=== PATIENT | male | born 1945 | race Caucasian/White ===

== ENCOUNTER 2017-02-02 15:24 | Emergency (ER) | payer MEDICARE, OTHER ==
[~2017-02-02] VITALS: Ht 185.4 cm; Wt 86.2 kg
[~2017-02-02 15:24] MED LIST: ASPIRIN ADULT L81 M1 PO; ATORVASTATIN CA40 M1 PO; CALCIUM ACETAT667 MG PO; CLEOCIN150 MG PO; COLACE100 MG PO; COREG12.5 M1 PO; CRESTOR20 MG PO; FLEXERIL10 MG PO; IRON325 M2 PO; MECLIZINE HCL25 M2 PO; METOPROLOL TART50 M1 PO; MOTRIN800 MG PO; PLAVIX75 M1 PO; PREDNISONE10 MG PO; TERAZOSIN HCL5 M1 PO; TRAMADOL HCL50 MG PO
[2017-02-02 16:08] LABS: BASO # 0.1 10*3/uL (0.0-0.1); BASO % 1.2 % (0.0-1.0); EOS # 0.3 10*3/uL (0.0-0.4); EOS % 3.7 % (1.0-4.0); HEMATOCRIT 31.6 % (42.0-52.0); HEMOGLOBIN 10.8 g/dl (14.0-18.0); LYMPH # 1.8 10*3/uL (1.3-4.4); LYMPH % 22.6 % (27.0-41.0); MEAN CELL VOLUME 92.7 fl (80.0-94.0); MEAN CORPUSCULAR HGB 31.7 pg (27.0-31.0); MEAN CORPUSCULAR HGB CONC 34.2 g/dl (33.0-37.0); MEAN PLATELET VOLUME 10.4 fl (9.6-12.3); MONO # 0.5 10*3/uL (0.1-1.0); NEUT # 5.3 10*3/uL (2.3-7.9); NEUT % 66.1 % (47.0-73.0); PLATELET COUNT AUTOMATED 161 10*3/uL (130-400); RED BLOOD COUNT 3.41 10*6/uL (4.50-5.90); RED CELL DISTRI WIDTH 14.2 % (0-14.5)
[2017-02-02 16:23] LABS: ALBUMIN 3.1 gm/dl (3.1-4.5); CREATININE 4.74 mg/dL (0.70-1.30); POTASSIUM 3.9 mmol/L (3.5-5.1); TOTAL PROTEIN 6.6 gm/dL (6.4-8.2)
[2017-02-02 16:50] LABS: BILIRUBIN NEGATIVE (NEGATIVE); BLOOD NEGATIVE (NEGATIVE); CLARITY CLEAR (CLEAR); COLOR YELLOW (YELLOW); GLUCOSE NEGATIVE (NEGATIVE); KETONE TRACE (NEGATIVE); LEUKO ESTERASE NEGATIVE (NEGATIVE); NITRITE NEGATIVE (NEGATIVE)
[2017-02-02 16:59] LABS: HYALINE CAST 0-2; RBC 0-2 rbc/hpf (0-2); WBC 0-2 wbc/hpf (0-5)
[2017-02-02] MEDS ORDERED: PERCOCET 5-3251 EACH PO (17:12)
== END 2017-02-02 17:18 | disposition home or self-care (01) ==
LOC: ED 15:24
PROVIDERS: Nurse Practitioner
DX: S30.0XXA Contusion of lower back and pelvis, initial encounter (principal); F17.200 Nicotine dependence, unspecified, uncomplicated; Z95.1 Presence of aortocoronary bypass graft; Z98.890 Other specified postprocedural states; Z79.899 Other long term (current) drug therapy; Z88.0 Allergy status to penicillin; Z79.82 Long term (current) use of aspirin; W19.XXXA Unspecified fall, initial encounter; Y93.89 Activity, other specified; Y92.89 Other specified places as the place of occurrence of the external cause; Y99.9 Unspecified external cause status

== ENCOUNTER 2018-05-11 19:05 | Emergency (ER) | payer MEDICARE ==
[~2018-05-11] VITALS: Ht 193 cm; Wt 87.1 kg
[~2018-05-11 19:05] MED LIST changes: +PERCOCET 5-3251 EACH PO
== END 2018-05-11 20:40 | disposition short-term general hospital (02) ==
LOC: ED 19:05
DX: I62.9 Nontraumatic intracranial hemorrhage, unspecified (principal); I12.0 Hypertensive chronic kidney disease with stage 5 chronic kidney disease or end stage renal disease; N18.6 End stage renal disease; I25.10 Atherosclerotic heart disease of native coronary artery without angina pectoris; Z88.0 Allergy status to penicillin; Z79.899 Other long term (current) drug therapy; Z79.82 Long term (current) use of aspirin; Z86.73 Personal history of transient ischemic attack (TIA), and cerebral infarction without residual deficits

== ENCOUNTER 2018-09-16 15:38 | Emergency (ER) | payer OTHER ==
[~2018-09-16] VITALS: Ht 187.9 cm; Wt 88.5 kg
--- NOTE | ~2018-09-16 | EKG ---
[place], [place] ELECTROCARDIOGRAM REPORT NAME: FOREIGN GONZALES UNIT #: [id number] ROOM: DOCTOR: EPIPHANY DRAFT REPORT BIRTHDATE: [birth year] [facility] Test Date: 2018-09-16 Test Time: 16:35:32 Pat Name: FOREIGN GONZALES Department: ed Room: Gender: Glove Parts Inspector: : 1945 Requested By: CATY PALOMARES Order Number: [id number] Reading MD: Shan Weldon MD Measurements Intervals [place] Rate: 63 P: 69 SC: 179 QRS: 47 QRSD: 78 T: 84 QT: 483 QTc: 495 Interpretive Statements Sinus rhythm Borderline prolonged QT interval Electronically Signed On 09-19-2018 8:40:00 PDT by Shan Weldon MD CM:EKGRPT:ELECTROCARDIOGRAM REPORT [id number] CATY MONTAÑO DRAFT REPORT CATY YORK
[2018-09-16 16:39] LABS: BASO # 0.1 10*3/uL (0.0-0.1); BASO % 1.6 % (0.0-1.0); EOS # 0.2 10*3/uL (0.0-0.4); EOS % 2.6 % (1.0-4.0); HEMATOCRIT 37.5 % (42.0-52.0); HEMOGLOBIN 11.9 g/dl (14.0-18.0); LYMPH # 1.2 10*3/uL (1.3-4.4); MEAN CELL VOLUME 96.6 fl (80.0-94.0); MEAN CORPUSCULAR HGB 30.7 pg (27.0-31.0); MEAN CORPUSCULAR HGB CONC 31.7 g/dl (33.0-37.0); MEAN PLATELET VOLUME 9.7 fl (9.6-12.3); MONO # 0.7 10*3/uL (0.1-1.0); NEUT # 5.1 10*3/uL (2.3-7.9); NEUT % 69.4 % (47.0-73.0); PLATELET COUNT AUTOMATED 223 10*3/uL (130-400); RED BLOOD COUNT 3.88 10*6/uL (4.50-5.90); WHITE BLOOD COUNT 7.4 10*3/uL (4.8-10.8)
[2018-09-16 16:59] LABS: ALKALINE PHOSPHATASE 94 U/L (45-117); BUN 21 mg/dl (7-24); CHLORIDE 98 mmol/L (98-107); CREATININE 5.66 mg/dL (0.70-1.30); LIPASE 164 U/L (73-393); POTASSIUM 3.9 mmol/L (3.5-5.1); SGOT/AST 14 IU/L (3-35); SGPT/ALT 14 U/L (12-78); SODIUM 134 mmol/L (136-145); TOTAL PROTEIN 7.2 gm/dL (6.4-8.2)
[2018-09-16 17:03] LABS: ACT PARTIAL THROMBO TIME 27.1 SECONDS (20.0-32.1)
[2018-09-16 17:04] LABS: TROPONIN I < 0.015 ng/ml (<0.045)
[2018-09-16] MEDS ORDERED: COREG6.25 MG PO (18:22)
[2018-09-16] MEDS ORDERED: LISINOPRIL10 M1 PO (18:22)
== END 2018-09-16 18:24 | disposition home or self-care (01) ==
LOC: ED 15:38
PROVIDERS: Physician Assistant
DX: I12.0 Hypertensive chronic kidney disease with stage 5 chronic kidney disease or end stage renal disease (principal); N18.6 End stage renal disease; I25.2 Old myocardial infarction; Z88.0 Allergy status to penicillin; Z79.82 Long term (current) use of aspirin; Z79.899 Other long term (current) drug therapy; Z95.1 Presence of aortocoronary bypass graft; Z86.73 Personal history of transient ischemic attack (TIA), and cerebral infarction without residual deficits; Z99.2 Dependence on renal dialysis

== ENCOUNTER 2018-12-02 06:36 | Inpatient (IN) | payer OTHER ==
[~2018-12-02] VITALS: Ht 188 cm; Wt 100.9 kg
[~2018-12-02 06:36] MED LIST changes: -ATORVASTATIN CA40 M1 PO; +COREG6.25 MG PO; +LIPITOR80 MG PO; +LISINOPRIL10 M1 PO
[2018-12-02 06:52] VITALS: BP 148/57
[2018-12-02 07:04] LABS: BASO # 0.2 10*3/uL (0.0-0.1); EOS # 0.5 10*3/uL (0.0-0.4); EOS % 2.7 % (1.0-4.0); HEMATOCRIT 34.1 % (42.0-52.0); HEMOGLOBIN 10.8 g/dl (14.0-18.0); LYMPH # 1.4 10*3/uL (1.3-4.4); LYMPH % 7.8 % (27.0-41.0); MEAN CELL VOLUME 95.3 fl (80.0-94.0); MEAN CORPUSCULAR HGB 30.2 pg (27.0-31.0); MEAN CORPUSCULAR HGB CONC 31.7 g/dl (33.0-37.0); MONO # 0.6 10*3/uL (0.1-1.0); MONO % 3.7 % (3.0-9.0); NEUT # 14.6 10*3/uL (2.3-7.9); NEUT % 83.2 % (47.0-73.0); PLATELET COUNT AUTOMATED 166 10*3/uL (130-400); RED BLOOD COUNT 3.58 10*6/uL (4.50-5.90); RED CELL DISTRI WIDTH 15.7 % (0-14.5); WHITE BLOOD COUNT 17.5 10*3/uL (4.8-10.8)
[2018-12-02 07:22] LABS: ALBUMIN 3.1 gm/dl (3.1-4.5); ALKALINE PHOSPHATASE 103 U/L (45-117); BUN 40 mg/dl (7-24); CHLORIDE 99 mmol/L (98-107); CREATININE 7.92 mg/dL (0.70-1.30); POTASSIUM 4.2 mmol/L (3.5-5.1); SGOT/AST 20 IU/L (3-35); SGPT/ALT 25 U/L (12-78); SODIUM 136 mmol/L (136-145); TOTAL PROTEIN 7.1 gm/dL (6.4-8.2)
[2018-12-02 07:25] LABS: TROPONIN I < 0.015 ng/ml (<0.045)
[2018-12-02 07:47] LABS: ACT PARTIAL THROMBO TIME 81.9 SECONDS (20.0-32.1)
--- NOTE | 2018-12-02 07:47 | NUR ---
APTT = 81.9. CRITICAL VALUE.
--- NOTE | 2018-12-02 09:21 | NUR ---
PT RECEIVED BREAKFAST TRAY. EATING BEFORE GOING TO 4E.
[2018-12-02 09:31] LABS: BILIRUBIN NEGATIVE (NEGATIVE); BLOOD TRACE-INTACT (NEGATIVE); CLARITY CLEAR (CLEAR); COLOR YELLOW (YELLOW); GLUCOSE TRACE (NEGATIVE); KETONE NEGATIVE (NEGATIVE); LEUKO ESTERASE NEGATIVE (NEGATIVE); NITRITE NEGATIVE (NEGATIVE); PH 7.5 (5.0-9.0); SPECIFIC GRAVITY 1.015 (1.005-1.030); UROBILINOGEN 0.2 E.U./dl (0.2-1.0)
[2018-12-02 09:40] LABS: BACTERIA TRACE
[2018-12-02 10:00] VITALS: BP 132/52
--- NOTE | 2018-12-02 10:00 | NUR ---
Time: 999 A 73 year old MALE admitted to 4E under services of ARIC MEDRANO DO. Pt. arrived via wheel chair from ER. Chief complaint: SENT FROM DIALYSIS DUE TO RN THOUGHT PATIENT WAS HAVING A STROKE. BILL LEE
--- NOTE | 2018-12-02 10:16 | NUR ---
RENAL/ANKLE FOOT AND ID HAVE BEEN NOTIFIED OF CONSULTS
[2018-12-02] MEDS ORDERED: B-12500 MC1 PO (10:56)
[2018-12-02] MEDS ORDERED: NATURE'S BLEND F1 MG PO (10:59)
[2018-12-02] MEDS ORDERED: Bactroban Oint22 GM T (11:03)
[2018-12-02] MEDS ORDERED: PYRIDOXINE HCL50 MG PO (11:05)
[2018-12-02 12:00] VITALS: BP 121/50
--- NOTE | 2018-12-02 14:57 | NUR ---
Patient not available for Occupational Therapy as he is in dialysis. Kendal Reyes OTR/L
--- NOTE | 2018-12-02 14:57 | NUR ---
PHYSICAL THERAPY Physical therapy evaluation attempted however Pt unavailable; Pt in dialysis. Will attempt later. Thank you Vicki Greenberg, PT, DPT
[2018-12-02 20:00] VITALS: BP 129/57
[2018-12-03] VITALS: BP 120/50
--- NOTE | 2018-12-03 04:00 | NUR ---
SLEEPING. NO ACUTE DISTRESS.
--- NOTE | 2018-12-03 05:05 | NUR ---
24 HR chart check completed.
[2018-12-03 07:58] LABS: BASO # 0.2 10*3/uL (0.0-0.1); BASO % 1.4 % (0.0-1.0); EOS # 0.4 10*3/uL (0.0-0.4); EOS % 3.5 % (1.0-4.0); HEMATOCRIT 26.9 % (42.0-52.0); HEMOGLOBIN 8.5 g/dl (14.0-18.0); LYMPH # 1.6 10*3/uL (1.3-4.4); LYMPH % 15.2 % (27.0-41.0); MEAN CELL VOLUME 95.4 fl (80.0-94.0); MEAN CORPUSCULAR HGB 30.1 pg (27.0-31.0); MEAN CORPUSCULAR HGB CONC 31.6 g/dl (33.0-37.0); MEAN PLATELET VOLUME 10.8 fl (9.6-12.3); MONO # 0.9 10*3/uL (0.1-1.0); MONO % 8.2 % (3.0-9.0); NEUT # 7.7 10*3/uL (2.3-7.9); NEUT % 71.1 % (47.0-73.0); PLATELET COUNT AUTOMATED 150 10*3/uL (130-400); RED BLOOD COUNT 2.82 10*6/uL (4.50-5.90); RED CELL DISTRI WIDTH 15.8 % (0-14.5); WHITE BLOOD COUNT 10.8 10*3/uL (4.8-10.8)
[2018-12-03 08:00] VITALS: BP 122/46
--- NOTE | 2018-12-03 08:00 | NUR ---
PT SLEEPING. ATTEMPTED TO WAKE HIM UP TO TAKE PO PHOSLO. PT REFUSED. BED LOW. CALL ORTEGA IN REACH
[2018-12-03 08:08] LABS: ACT PARTIAL THROMBO TIME 30.5 SECONDS (20.0-32.1)
[2018-12-03 08:28] LABS: ALBUMIN 2.5 gm/dl (3.1-4.5); CREATININE 6.15 mg/dL (0.70-1.30); PHOSPHOROUS 4.5 mg/dL (2.5-4.9); POTASSIUM 4.3 mmol/L (3.5-5.1)
[2018-12-03 08:32] LABS: THYROID STIM HORMONE (HS) 0.49 uIU/ml (0.358-4.75)
[2018-12-03 09:07] LABS: VITAMIN D, 25-HYDROXY 11.4 ng/mL (30-100)
--- NOTE | 2018-12-03 09:30 | NUR ---
PT AWAKE. ASSESSMENT COMPLETE. ROUTINE MEDICATIONS WELL TOLERATED. NO PT QUESTIONS/CONCERNS AT THIS TIME
[2018-12-03 12:00] VITALS: BP 134/49
--- NOTE | 2018-12-03 15:00 | NUR ---
ASSUMED CARE FOR THIS PT AT THIS TIME. NO C/O VOICED. CALL LIGHT IN REACH.
[2018-12-03 16:00] VITALS: BP 152/54
[2018-12-03 20:00] VITALS: BP 140/42
--- NOTE | 2018-12-03 22:45 | NUR ---
24 HR chart check completed.
[2018-12-04] VITALS: BP 142/52
--- NOTE | 2018-12-04 01:21 | NUR ---
24 HR chart check completed.
--- NOTE | 2018-12-04 03:17 | NUR ---
sleeping no distress noted.
--- NOTE | 2018-12-04 06:00 | NUR ---
PT. ALERT SITTING UP IN BED WATCHING TV. PT APPEARANCE HAS IMPROVED SINCE YESTERDAY AND IS HOPING TO GO HOME TODAY.
[2018-12-04 06:34] LABS: BASO # 0.1 10*3/uL (0.0-0.1); BASO % 1.3 % (0.0-1.0); EOS # 0.3 10*3/uL (0.0-0.4); HEMATOCRIT 27.7 % (42.0-52.0); HEMOGLOBIN 8.5 g/dl (14.0-18.0); LYMPH # 1.4 10*3/uL (1.3-4.4); LYMPH % 13.2 % (27.0-41.0); MEAN CELL VOLUME 96.9 fl (80.0-94.0); MEAN CORPUSCULAR HGB 29.7 pg (27.0-31.0); MEAN CORPUSCULAR HGB CONC 30.7 g/dl (33.0-37.0); MEAN PLATELET VOLUME 11.2 fl (9.6-12.3); MONO # 0.8 10*3/uL (0.1-1.0); MONO % 7.3 % (3.0-9.0); NEUT # 7.7 10*3/uL (2.3-7.9); NEUT % 74.7 % (47.0-73.0); PLATELET COUNT AUTOMATED 170 10*3/uL (130-400); RED BLOOD COUNT 2.86 10*6/uL (4.50-5.90); RED CELL DISTRI WIDTH 15.8 % (0-14.5); WHITE BLOOD COUNT 10.2 10*3/uL (4.8-10.8)
[2018-12-04 06:49] LABS: ALBUMIN 2.6 gm/dl (3.1-4.5); CREATININE 8.38 mg/dL (0.70-1.30); PHOSPHOROUS 4.8 mg/dL (2.5-4.9)
[2018-12-04 06:59] LABS: POTASSIUM 5.3 mmol/L (3.5-5.1)
[2018-12-04 08:00] VITALS: BP 139/48
[2018-12-04 12:00] VITALS: BP 136/65
--- NOTE | 2018-12-04 12:57 | NUR ---
DR ROMERO IN TO SEE PT. INFORMED PT HE WOULD BE DISCHARGED TODAY.
--- NOTE | 2018-12-04 13:12 | NUR ---
PHYSICAL THERAPY Progress note: Pt seen for evaluation while on 4th floor, moderate complexity determined. Refer to evaluation for details with recommendation for HHPT upon discharge. Thank you for this referral Sofía Rizo, PT
--- NOTE | 2018-12-04 13:57 | NUR ---
Discharge instructions reviewed with patient/family. Patient receptive and verbalizes understanding. Follow-up care arranged. Written instructions given to patient/family. INDIO GASTELUM
== END 2018-12-04 13:57 | disposition home or self-care (01) | DRG 602 ==
LOC: ED 06:36 → 4E 08:27 → EDHOLD 08:27 → 4E 08:55
PROVIDERS: Emergency Medicine Emergency Medical Services; Internal Medicine; Student in an Organized Health Care Education/Training Program; ADMIT Emergency Medicine
DX: L03.90 Cellulitis, unspecified (principal); N18.6 End stage renal disease; I12.0 Hypertensive chronic kidney disease with stage 5 chronic kidney disease or end stage renal disease; E44.0 Moderate protein-calorie malnutrition; B35.1 Tinea unguium; I25.10 Atherosclerotic heart disease of native coronary artery without angina pectoris; E78.5 Hyperlipidemia, unspecified; I73.9 Peripheral vascular disease, unspecified; F17.210 Nicotine dependence, cigarettes, uncomplicated; H91.13 Presbycusis, bilateral; M54.5 Low back pain; G89.29 Other chronic pain; D72.825 Bandemia; D53.9 Nutritional anemia, unspecified; R80.9 Proteinuria, unspecified; Z86.73 Personal history of transient ischemic attack (TIA), and cerebral infarction without residual deficits; I25.2 Old myocardial infarction; Z88.0 Allergy status to penicillin; Z79.82 Long term (current) use of aspirin; Z79.899 Other long term (current) drug therapy; Z95.1 Presence of aortocoronary bypass graft; Z99.2 Dependence on renal dialysis; Z82.49 Family history of ischemic heart disease and other diseases of the circulatory system; Z80.8 Family history of malignant neoplasm of other organs or systems; Z71.6 Tobacco abuse counseling

== ENCOUNTER 2018-12-21 07:06 | Emergency (ER) | payer OTHER ==
[~2018-12-21] VITALS: Ht 187.9 cm; Wt 90.7 kg
--- NOTE | ~2018-12-21 | EKG ---
[place], [place] ELECTROCARDIOGRAM REPORT NAME: FOREIGN GONZALES UNIT #: [id number] ROOM: DOCTOR: EPIPHANY DRAFT REPORT BIRTHDATE: [birth year] [facility] Test Date: 2018-12-21 Test Time: 07:32:46 Pat Name: FOREIGN GONZALES Department: Room: 9 Gender: M Community Engagement Coordinator: : 1945 Requested By: MICHAEL LÓPEZ Order Number: [id number] Reading MD: Tammy Chang Measurements Intervals [place] Rate: 75 P: AR: QRS: 53 QRSD: 78 T: QT: 222 QTc: 376 Interpretive Statements Atrial rhythm Nonspecific T abnormalities, diffuse leads Baseline wander in lead(s) I,III,aVL,V4 Compared to ECG 12/02/2018 06:52:49 Ventricular premature complex(es) now present T-wave abnormality now present First degree AV block no longer present Electronically Signed On 12-23-2018 7:36:28 PST by Tammy Chang CM:EKGRPT:ELECTROCARDIOGRAM REPORT [id number] MICHAEL MONTAÑO DRAFT REPORT MICHAEL LÓPEZ MD
[~2018-12-21 07:06] MED LIST changes: +B-12500 MC1 PO; +Bactroban Oint22 GM T; +NATURE'S BLEND F1 MG PO; +PYRIDOXINE HCL50 MG PO
[2018-12-21 07:35] LABS: BASO # 0.1 10*3/uL (0.0-0.1); BASO % 1.1 % (0.0-1.0); EOS # 0.4 10*3/uL (0.0-0.4); EOS % 4.8 % (1.0-4.0); HEMATOCRIT 26.2 % (42.0-52.0); LYMPH # 1.5 10*3/uL (1.3-4.4); LYMPH % 17.5 % (27.0-41.0); MEAN CELL VOLUME 98.1 fl (80.0-94.0); MEAN CORPUSCULAR HGB CONC 30.5 g/dl (33.0-37.0); MEAN PLATELET VOLUME 9.7 fl (9.6-12.3); MONO # 0.6 10*3/uL (0.1-1.0); MONO % 6.4 % (3.0-9.0); NEUT # 6.2 10*3/uL (2.3-7.9); NEUT % 69.9 % (47.0-73.0); PLATELET COUNT AUTOMATED 179 10*3/uL (130-400); RED BLOOD COUNT 2.67 10*6/uL (4.50-5.90); RED CELL DISTRI WIDTH 16.7 % (0-14.5); WHITE BLOOD COUNT 8.8 10*3/uL (4.8-10.8)
[2018-12-21 07:45] LABS: ACT PARTIAL THROMBO TIME 38.7 SECONDS (20.0-32.1)
[2018-12-21 07:53] LABS: ALBUMIN 2.8 gm/dl (3.1-4.5); ALKALINE PHOSPHATASE 93 U/L (45-117); BUN 26 mg/dl (7-24); CHLORIDE 100 mmol/L (98-107); POTASSIUM 4.8 mmol/L (3.5-5.1); SGOT/AST 13 IU/L (3-35); SGPT/ALT 18 U/L (12-78); SODIUM 138 mmol/L (136-145); TOTAL PROTEIN 6.8 gm/dL (6.4-8.2)
[2018-12-21 08:00] LABS: TROPONIN I < 0.015 ng/ml (<0.045)
== END 2018-12-21 14:37 | disposition short-term general hospital (02) ==
LOC: ED 07:06
PROVIDERS: Emergency Medicine
DX: R53.1 Weakness (principal); R29.810 Facial weakness; R20.0 Anesthesia of skin; I25.2 Old myocardial infarction; Z95.1 Presence of aortocoronary bypass graft; I25.10 Atherosclerotic heart disease of native coronary artery without angina pectoris; E78.5 Hyperlipidemia, unspecified; I12.0 Hypertensive chronic kidney disease with stage 5 chronic kidney disease or end stage renal disease; N18.6 End stage renal disease; Z99.2 Dependence on renal dialysis; I73.9 Peripheral vascular disease, unspecified; F17.210 Nicotine dependence, cigarettes, uncomplicated; Z86.73 Personal history of transient ischemic attack (TIA), and cerebral infarction without residual deficits; Z88.0 Allergy status to penicillin; Z79.899 Other long term (current) drug therapy; Z79.82 Long term (current) use of aspirin

== ENCOUNTER 2019-06-21 01:27 | Inpatient (IN) | payer OTHER ==
[~2019-06-21] VITALS: Ht 188 cm; Wt 83.3 kg
[2019-06-21 01:34] VITALS: BP 108/48
[2019-06-21 01:51] LABS: BASO # 0.1 10*3/uL (0.0-0.1); BASO % 0.9 % (0.0-1.0); EOS # 0.2 10*3/uL (0.0-0.4); EOS % 1.9 % (1.0-4.0); HEMATOCRIT 36.7 % (42.0-52.0); LYMPH # 1.6 10*3/uL (1.3-4.4); LYMPH % 13.5 % (27.0-41.0); MEAN CELL VOLUME 98.1 fl (80.0-94.0); MEAN CORPUSCULAR HGB 31.6 pg (27.0-31.0); MEAN CORPUSCULAR HGB CONC 32.2 g/dl (33.0-37.0); MEAN PLATELET VOLUME 9.5 fl (9.6-12.3); MONO # 0.6 10*3/uL (0.1-1.0); MONO % 4.8 % (3.0-9.0); NEUT # 9.2 10*3/uL (2.3-7.9); NEUT % 78.4 % (47.0-73.0); PLATELET COUNT AUTOMATED 237 10*3/uL (130-400); RED BLOOD COUNT 3.74 10*6/uL (4.50-5.90); RED CELL DISTRI WIDTH 16.9 % (0-14.5); WHITE BLOOD COUNT 11.7 10*3/uL (4.8-10.8)
[2019-06-21 01:59] LABS: ACT PARTIAL THROMBO TIME 28.2 SECONDS (20.0-32.1); INTERNATIONAL NORM RATIO 1.1 (2.0-3.5)
[2019-06-21 02:05] LABS: ALKALINE PHOSPHATASE 85 U/L (45-117); BUN 55 mg/dl (7-24); CHLORIDE 98 mmol/L (98-107); POTASSIUM 5.2 mmol/L (3.5-5.1); SGOT/AST 30 IU/L (3-35); SGPT/ALT 19 U/L (12-78); SODIUM 136 mmol/L (136-145); TOTAL PROTEIN 7.6 gm/dL (6.4-8.2)
[2019-06-21 02:07] LABS: TROPONIN I < 0.015 ng/ml (<0.045)
[2019-06-21 03:20] VITALS: BP 107/41
[2019-06-21] MEDS ORDERED: LISINOPRIL20 MG PO (04:39)
[2019-06-21] MEDS ORDERED: AMLODIPINE BESYL5 MG PO (04:42)
[2019-06-21] MEDS ORDERED: PROAIR HFA8.5 GM INH (04:46)
[2019-06-21 08:00] VITALS: BP 137/62
[2019-06-21 11:37] LABS: BASO # 0.1 10*3/uL (0.0-0.1); BASO % 0.6 % (0.0-1.0); EOS # 0.2 10*3/uL (0.0-0.4); EOS % 1.4 % (1.0-4.0); HEMATOCRIT 32.8 % (42.0-52.0); LYMPH # 1.1 10*3/uL (1.3-4.4); LYMPH % 7.8 % (27.0-41.0); MEAN CELL VOLUME 97.9 fl (80.0-94.0); MEAN CORPUSCULAR HGB 31.6 pg (27.0-31.0); MEAN CORPUSCULAR HGB CONC 32.3 g/dl (33.0-37.0); MEAN PLATELET VOLUME 10.4 fl (9.6-12.3); MONO # 0.7 10*3/uL (0.1-1.0); MONO % 4.9 % (3.0-9.0); NEUT % 84.8 % (47.0-73.0); PLATELET COUNT AUTOMATED 201 10*3/uL (130-400); RED BLOOD COUNT 3.35 10*6/uL (4.50-5.90); RED CELL DISTRI WIDTH 16.8 % (0-14.5); WHITE BLOOD COUNT 14.2 10*3/uL (4.8-10.8)
[2019-06-21 11:49] LABS: ALBUMIN 2.6 gm/dl (3.1-4.5); CREATININE 11.2 mg/dL (0.70-1.30); POTASSIUM 5.5 mmol/L (3.5-5.1)
[2019-06-21 16:00] VITALS: BP 152/98
[2019-06-21 20:00] VITALS: BP 114/51
[2019-06-22] VITALS: BP 101/51
[2019-06-22 03:02] LABS: BILIRUBIN NEGATIVE (NEGATIVE); BLOOD NEGATIVE (NEGATIVE); CLARITY CLEAR (CLEAR); COLOR YELLOW (YELLOW); GLUCOSE NEGATIVE (NEGATIVE); KETONE TRACE (NEGATIVE); LEUKO ESTERASE NEGATIVE (NEGATIVE); NITRITE NEGATIVE (NEGATIVE); SPECIFIC GRAVITY 1.015 (1.005-1.030); UROBILINOGEN 0.2 E.U./dl (0.2-1.0)
[2019-06-22 03:08] LABS: BACTERIA TRACE
[2019-06-22 06:42] LABS: BASO # 0.1 10*3/uL (0.0-0.1); BASO % 0.7 % (0.0-1.0); EOS # 0.2 10*3/uL (0.0-0.4); EOS % 2.2 % (1.0-4.0); LYMPH # 1.6 10*3/uL (1.3-4.4); MEAN CELL VOLUME 97.1 fl (80.0-94.0); MEAN CORPUSCULAR HGB 31.4 pg (27.0-31.0); MEAN CORPUSCULAR HGB CONC 32.4 g/dl (33.0-37.0); MEAN PLATELET VOLUME 10.5 fl (9.6-12.3); MONO # 0.7 10*3/uL (0.1-1.0); MONO % 6.2 % (3.0-9.0); NEUT # 8.2 10*3/uL (2.3-7.9); NEUT % 75.4 % (47.0-73.0); PLATELET COUNT AUTOMATED 198 10*3/uL (130-400); RED CELL DISTRI WIDTH 16.5 % (0-14.5); WHITE BLOOD COUNT 10.9 10*3/uL (4.8-10.8)
[2019-06-22 06:57] LABS: CREATININE 8.01 mg/dL (0.70-1.30); POTASSIUM 4.8 mmol/L (3.5-5.1)
[2019-06-22 09:51] VITALS: BP 100/50
[2019-06-22 12:00] VITALS: BP 116/42
[2019-06-22 16:00] VITALS: BP 117/49
[2019-06-22 20:00] VITALS: BP 111/52
[2019-06-23] VITALS: BP 66/48
[2019-06-23 01:45] VITALS: BP 94/52
[2019-06-23 07:29] LABS: BASO # 0.1 10*3/uL (0.0-0.1); BASO % 1.2 % (0.0-1.0); EOS # 0.3 10*3/uL (0.0-0.4); EOS % 3.8 % (1.0-4.0); HEMATOCRIT 29.2 % (42.0-52.0); LYMPH # 1.6 10*3/uL (1.3-4.4); LYMPH % 18.2 % (27.0-41.0); MEAN CELL VOLUME 97.3 fl (80.0-94.0); MEAN CORPUSCULAR HGB 31.3 pg (27.0-31.0); MEAN CORPUSCULAR HGB CONC 32.2 g/dl (33.0-37.0); MEAN PLATELET VOLUME 10.1 fl (9.6-12.3); MONO # 0.6 10*3/uL (0.1-1.0); MONO % 7.3 % (3.0-9.0); NEUT % 68.9 % (47.0-73.0); PLATELET COUNT AUTOMATED 178 10*3/uL (130-400); RED CELL DISTRI WIDTH 16.3 % (0-14.5); WHITE BLOOD COUNT 8.7 10*3/uL (4.8-10.8)
[2019-06-23 07:40] LABS: ALBUMIN 2.5 gm/dl (3.1-4.5); CREATININE 9.66 mg/dL (0.70-1.30); POTASSIUM 4.7 mmol/L (3.5-5.1)
== END 2019-06-23 13:46 | disposition other institution (70) | DRG 564 ==
LOC: ED 01:27 → EDHOLD 02:37 → 4E 02:37
PROVIDERS: Emergency Medicine; Internal Medicine; Internal Medicine Nephrology; Student in an Organized Health Care Education/Training Program; ADMIT Internal Medicine
PROC: 0HBRXZZ Excision of Toe Nail, External Approach (ICD-10-PCS; principal; 2019-06-22)
PROC: 5A1D70Z Performance of Urinary Filtration, Intermittent, Less than 6 Hours Per Day (ICD-10-PCS; 2019-06-23)
DX: T79.6XXA Traumatic ischemia of muscle, initial encounter (principal); G93.41 Metabolic encephalopathy; N18.6 End stage renal disease; I12.0 Hypertensive chronic kidney disease with stage 5 chronic kidney disease or end stage renal disease; W19.XXXA Unspecified fall, initial encounter; E78.5 Hyperlipidemia, unspecified; I25.10 Atherosclerotic heart disease of native coronary artery without angina pectoris; I73.9 Peripheral vascular disease, unspecified; B35.1 Tinea unguium; D53.9 Nutritional anemia, unspecified; F17.210 Nicotine dependence, cigarettes, uncomplicated; E83.39 Other disorders of phosphorus metabolism; R26.2 Difficulty in walking, not elsewhere classified; Z88.0 Allergy status to penicillin; Z86.73 Personal history of transient ischemic attack (TIA), and cerebral infarction without residual deficits; Z79.82 Long term (current) use of aspirin; Z79.899 Other long term (current) drug therapy; I25.2 Old myocardial infarction; Z95.1 Presence of aortocoronary bypass graft; Z80.9 Family history of malignant neoplasm, unspecified; Z82.49 Family history of ischemic heart disease and other diseases of the circulatory system; Z71.6 Tobacco abuse counseling; Z99.2 Dependence on renal dialysis

== ENCOUNTER 2020-01-03 14:06 | Inpatient (IN) | payer OTHER ==
[~2020-01-03 14:06] MED LIST changes: +AMLODIPINE BESYL5 MG PO; +LISINOPRIL20 MG PO; +PROAIR HFA8.5 GM INH
[2020-01-03 14:07] VITALS: BP 130/50
[2020-01-03 15:44] VITALS: BP 121/52
--- NOTE | 2020-01-03 15:45 | NUR ---
PT RESTING IN BED. RESPIRATIONS EASY AND REGULAR. DENIES PAIN AT THIS TIME.
[2020-01-03 16:21] VITALS: BP 122/56
--- NOTE | 2020-01-03 16:30 | NUR ---
LABELER IN TO SEE PATIENT. LABELER DOES NOT WANT FLUIDS HUNG AT THIS TIME.
[2020-01-03 16:50] LABS: BASO % 0.4 % (0.0-1.0); EOS % 0.4 % (1.0-4.0); HEMATOCRIT 26.4 % (42.0-52.0); LYMPH # 1.3 10*3/uL (1.3-4.4); LYMPH % 26.7 % (27.0-41.0); MEAN CORPUSCULAR HGB 29.7 pg (27.0-31.0); MEAN CORPUSCULAR HGB CONC 32.6 g/dl (33.0-37.0); MEAN PLATELET VOLUME 10.9 fl (9.6-12.3); MONO # 0.3 10*3/uL (0.1-1.0); MONO % 6.5 % (3.0-9.0); NEUT # 3.3 10*3/uL (2.3-7.9); NEUT % 65.8 % (47.0-73.0); PLATELET COUNT AUTOMATED 96 10*3/uL (130-400); RED CELL DISTRI WIDTH 16.4 % (0-14.5)
[2020-01-03 17:03] LABS: ALBUMIN 2.8 gm/dl (3.1-4.5); CREATININE 17.2 mg/dL (0.70-1.30); POTASSIUM 5.5 mmol/L (3.5-5.1); TOTAL PROTEIN 6.8 gm/dL (6.4-8.2)
[2020-01-03 17:15] VITALS: BP 120/58
--- NOTE | 2020-01-03 17:16 | NUR ---
PT RESTING IN BED. A+OX3 AT THIS TIME. CALL LIGHT IN REACH.
--- NOTE | 2020-01-03 19:49 | NUR ---
DR LE CALLED AND ORDERED ME TO D/C PTS FLUIDS
[2020-01-03 20:25] VITALS: BP 115/51
--- NOTE | 2020-01-03 22:36 | NUR ---
PT RESTING IN BED WITH NO ACUTE DISTRESS. SIDERAILS UP X2. CALL LIGHT WITHIN REACH
[2020-01-03 23:59] VITALS: BP 102/49
--- NOTE | 2020-01-03 23:59 | NUR ---
PT REPOSITIONED AND BED AND PROVIDED ANOTHER BLANKET. NO NEEDS AT THIS TIME. CALL LIGHT WITHIN REACH. SIDERAILS UP X2
--- NOTE | 2020-01-04 00:29 | NUR ---
PT AMBULATORY TO RESTOOM WITH X1 ASSIST, PT HAD A BM.
[2020-01-04 01:01] LABS: BILIRUBIN Negative (Negative); BLOOD 1+ (Negative); CLARITY Clear (Clear); COLOR Yellow (Yellow); GLUCOSE Trace (Negative); KETONE Negative (Negative); LEUKO ESTERASE Negative (Negative); NITRITE Negative (Negative); SPECIFIC GRAVITY 1.015 (1.001-1.030); UROBILINOGEN 0.2 E.U./dl (0.0-1.0)
[2020-01-04 01:20] LABS: RBC 16-20 rbc/hpf (0-2)
--- NOTE | 2020-01-04 01:56 | NUR ---
pt ambulatory to restroom with x1 assist. pt with diarrhea. helped back to bed at this time
[2020-01-04 05:05] VITALS: BP 144/50
--- NOTE | 2020-01-04 05:13 | NUR ---
PT AMBULATORY TO RESTROOM WITH X1 ASSIST. PT STILL WITH DIARRHEA. NO COMPLAINTS AT THIS TIME. ALERT AND ORIENTED
--- NOTE | 2020-01-04 06:32 | NUR ---
CONSULT CALLED TO DR CASTANO ANSWERING SERVICE. NO RETURN CALL AT THIS TIME. NO NEW ORDERS RECEIVED.
[2020-01-04 06:55] LABS: BASO % 0.3 % (0.0-1.0); EOS % 0.7 % (1.0-4.0); HEMATOCRIT 26.8 % (42.0-52.0); LYMPH # 1.3 10*3/uL (1.3-4.4); LYMPH % 23.1 % (27.0-41.0); MEAN CELL VOLUME 90.2 fl (80.0-94.0); MEAN CORPUSCULAR HGB 29.3 pg (27.0-31.0); MEAN CORPUSCULAR HGB CONC 32.5 g/dl (33.0-37.0); MONO # 0.4 10*3/uL (0.1-1.0); MONO % 6.2 % (3.0-9.0); NEUT % 69.5 % (47.0-73.0); PLATELET COUNT AUTOMATED 106 10*3/uL (130-400); RED BLOOD COUNT 2.97 10*6/uL (4.50-5.90); RED CELL DISTRI WIDTH 16.4 % (0-14.5); WHITE BLOOD COUNT 5.8 10*3/uL (4.8-10.8)
[2020-01-04 07:46] LABS: ALBUMIN 2.8 gm/dl (3.1-4.5); CREATININE 17.8 mg/dL (0.70-1.30); POTASSIUM 5.1 mmol/L (3.5-5.1)
--- NOTE | 2020-01-04 08:05 | NUR ---
BATTERY INSTALLER RECEIVED CALL FROM [facility]. PATIENT IS 100% SERVICE CONNECTED. PHONE: [phone] FAX:[phone].
[2020-01-04 08:20] LABS: VITAMIN D, 25-HYDROXY 15.5 ng/mL (30-100)
--- NOTE | 2020-01-04 10:12 | NUR ---
PATIENT CONTINUES TO BE OFF THE FLOOR FOR DIALYSIS.
--- NOTE | 2020-01-04 11:50 | NUR ---
PT RETURNS TO FLOOR FROM DIALYSIS. NO VOICED COMPLAINTS. CALL LIGHT WITHIN REACH, BED IN LOWEST POSITION, SIDE RAILS UP X2.
--- NOTE | 2020-01-04 13:03 | NUR ---
LAURA CALLED TO HAND WRAPPER OPERATOR PT IN 1/2HR,PT W/O ACUTE DISTRESS NOTED.
== END 2020-01-04 13:35 | disposition home or self-care (01) | DRG 640 ==
LOC: ED 14:06 → EDHOLD 19:12
PROVIDERS: Emergency Medicine; Internal Medicine; Internal Medicine Nephrology; ADMIT Family Medicine; ATTEND Family Medicine
PROC: 5A1D70Z Performance of Urinary Filtration, Intermittent, Less than 6 Hours Per Day (ICD-10-PCS; principal; 2020-01-04)
DX: E87.5 Hyperkalemia (principal); N18.6 End stage renal disease; I12.0 Hypertensive chronic kidney disease with stage 5 chronic kidney disease or end stage renal disease; E87.1 Hypo-osmolality and hyponatremia; I25.10 Atherosclerotic heart disease of native coronary artery without angina pectoris; E78.5 Hyperlipidemia, unspecified; I73.9 Peripheral vascular disease, unspecified; D64.9 Anemia, unspecified; D69.6 Thrombocytopenia, unspecified; E87.8 Other disorders of electrolyte and fluid balance, not elsewhere classified; Z88.0 Allergy status to penicillin; Z95.1 Presence of aortocoronary bypass graft; Z95.820 Peripheral vascular angioplasty status with implants and grafts; I25.2 Old myocardial infarction; Z82.49 Family history of ischemic heart disease and other diseases of the circulatory system; Z86.73 Personal history of transient ischemic attack (TIA), and cerebral infarction without residual deficits; Z99.2 Dependence on renal dialysis; Z79.899 Other long term (current) drug therapy

== ENCOUNTER 2020-01-07 23:07 | Inpatient (IN) | payer OTHER ==
[~2020-01-07] VITALS: Ht 187.9 cm; Wt 61.0 kg
[2020-01-08] VITALS (8 sets, daily range): BP systolic 94–148; BP diastolic 37–58
[2020-01-08 00:44] LABS: BASO % 0.3 % (0.0-1.0); EOS % 0.2 % (1.0-4.0); HEMATOCRIT 28.8 % (42.0-52.0); LYMPH # 1.1 10*3/uL (1.3-4.4); MEAN CELL VOLUME 91.1 fl (80.0-94.0); MEAN CORPUSCULAR HGB 28.2 pg (27.0-31.0); MEAN CORPUSCULAR HGB CONC 30.9 g/dl (33.0-37.0); MEAN PLATELET VOLUME 11.4 fl (9.6-12.3); MONO # 0.6 10*3/uL (0.1-1.0); MONO % 9.9 % (3.0-9.0); NEUT # 4.2 10*3/uL (2.3-7.9); NEUT % 71.1 % (47.0-73.0); PLATELET COUNT AUTOMATED 146 10*3/uL (130-400); RED BLOOD COUNT 3.16 10*6/uL (4.50-5.90); RED CELL DISTRI WIDTH 16.2 % (0-14.5); WHITE BLOOD COUNT 5.9 10*3/uL (4.8-10.8)
[2020-01-08 01:01] LABS: ALBUMIN 2.9 gm/dl (3.1-4.5); CREATININE 7.25 mg/dL (0.70-1.30); POTASSIUM 3.4 mmol/L (3.5-5.1); TOTAL PROTEIN 7.2 gm/dL (6.4-8.2)
[2020-01-08 01:16] LABS: TROPONIN I 0.102 ng/ml (<0.045)
--- NOTE | 2020-01-08 01:17 | NUR ---
CALL REC'D FROM LAB, PATIENT'S TROPONIN ELEVATED AT 0.102 DR JOHN INFORMED.
--- NOTE | 2020-01-08 01:32 | NUR ---
PATIENT RECEIVED INTO ER VIA EMS WITH C/O WEAKNESS AND A FALL. PATIENT STATES HE HAS HAD WEAKNESS FOR 3-4 DAYS. PATIENT STATES HE WAS SEEN IN ER DAYS AGO BUT WAS DISCHARGED TO HOME. PATIENT STATES HE WAS GETTING OUT OF A TRIP WHEN HE TRIPPED AND LOST HIS BALANCE. PATIENT DENIES HITTING HIS HEAD. PATIENT IS AA & O X4. PATIENT CONNECTED TO CD TECHNICIAN, BLOOD PRESSURE CUFF, AND PULSE OXIMETER. AWAITING FURTHER ORDERS.
--- NOTE | 2020-01-08 02:30 | NUR ---
PATIENT GIVEN URINAL AND ASKED TO PROVIDE A URINE SPECIMEN
--- NOTE | 2020-01-08 02:58 | NUR ---
PATIENT LAYING IN BED REQUESTING BREAKFAST.
--- NOTE | 2020-01-08 03:23 | NUR ---
PATIENT REMINDED A SECOND TIME TO PROVIDE A URINE SPECIMEN. MD NOTIFIED.
--- NOTE | 2020-01-08 05:13 | NUR ---
20 GA SALINE LOCK NOTED TO RAC
--- NOTE | 2020-01-08 05:22 | NUR ---
REPORT GIVEN TO JOSÉ MIGUEL FARAH. PATIENT'S BLOOD PRESSURE 94/58; MD AWARE AND STATED LONG PATIENTS SYSTOLIC IS ABOVE 90 PATIENT MAY GO TO ADMITTED ROOM.
--- NOTE | 2020-01-08 06:18 | NUR ---
PATIENT M-W-F DIALYSIS PATIENT AND DIALYSIS CLINIC NOTIFIED AT THIS TIME THAT PATIENT IS ADMISSION IN THE HOSPITAL
[2020-01-08 06:29] LABS: BASO % 0.2 % (0.0-1.0); HEMATOCRIT 27.1 % (42.0-52.0); LYMPH # 1.3 10*3/uL (1.3-4.4); LYMPH % 26.6 % (27.0-41.0); MEAN CELL VOLUME 90.9 fl (80.0-94.0); MEAN CORPUSCULAR HGB 28.9 pg (27.0-31.0); MEAN CORPUSCULAR HGB CONC 31.7 g/dl (33.0-37.0); MEAN PLATELET VOLUME 11.5 fl (9.6-12.3); MONO # 0.5 10*3/uL (0.1-1.0); MONO % 9.5 % (3.0-9.0); NEUT # 3.1 10*3/uL (2.3-7.9); NEUT % 63.1 % (47.0-73.0); PLATELET COUNT AUTOMATED 134 10*3/uL (130-400); RED BLOOD COUNT 2.98 10*6/uL (4.50-5.90); WHITE BLOOD COUNT 4.9 10*3/uL (4.8-10.8)
--- NOTE | 2020-01-08 06:30 | NUR ---
A 74, admitted to 4E, under the services of LORNA Shultz DO with a diagnosis of weakness. Chief complaint is weakness and fall at home. Patient arrived via stretcher from ER. Initial assessment completed. Vital signs taken and recorded. Physician notified of admission to the unit. Orders received. See assessment for past medical history, medications and allergies. Patient and/or family oriented to unit. [facility] visitation policy reviewed. Clothing/patient valuable form completed. RAOUL CHARLES
--- NOTE | 2020-01-08 06:37 | NUR ---
DIALYSIS CLINIC IS GOING TO BE SENDING OVER THE PATIENTS MEDICATION LIST
[2020-01-08] MEDS ORDERED: NORVASC5 MG PO (06:40)
[2020-01-08] MEDS ORDERED: COREG6.25 MG PO (06:41)
[2020-01-08] MEDS ORDERED: LISINOPRIL20 MG PO (06:42)
[2020-01-08 06:44] LABS: CREATININE 7.79 mg/dL (0.70-1.30); POTASSIUM 3.3 mmol/L (3.5-5.1)
--- NOTE | 2020-01-08 06:44 | NUR ---
pt medication list updated per medication list sent from dialysis clinic
--- NOTE | 2020-01-08 06:49 | NUR ---
dr gomez notified that patient was brought up to floor. she was notified that med rec has been completed. she was notified that patient is a m-w-f dialysis patient she was notified that pt troponin was positive at 0.106
--- NOTE | 2020-01-08 07:05 | NUR ---
Pt came up to the floor about 0630. Pt is alert and oriented hard of hearing, no hearing aides. Pt admits to living alone and falling.He was just discharged from facility.Pt had loose BM on the bed and in the toilet. Bed alarm is on,call fitzgerald within reach.Bed in lowest position.
--- NOTE | 2020-01-08 08:27 | NUR ---
PATIENT REPOSITIONED IN BED. HEAD TO TOE ASSESSMENT COMPLETED. NO OPEN WOUNDS AT TIME OF ASSESSMENT.
--- NOTE | 2020-01-08 10:50 | NUR ---
PHYSICAL THERAPY Physical Therapy evaluation completed on 4th floor with full evaluation to follow. Recommend physical therapy per plan of care and SNF upon discharge. Thank you for this referral. Lavonne Chacon PT
--- NOTE | 2020-01-08 12:58 | NUR ---
ATTEMPT MADE TO COVID SWAB PT, PT WAS UNABLE TO TOLERATE SWAB INSERTION, PT REFUSED TO HAVE COVID SWAB DOES STATED"I CANT STAND THAT".
--- NOTE | 2020-01-08 13:46 | NUR ---
POLITICAL SCIENTIST SPOKE TO TERESE/ANTHONY. PER CAIT- PATIENT ONLY HAS 6 DAYS LEFT AND WOULD BE INTO A $176.00 COPAY. POLITICAL SCIENTIST REACHED OUT TO PATIENTS DAUGHTER. PATIENTS DAUGHTER STATED THAT THE PATIENT HAS BEEN CONFUSED AND HAS BEEN FOUND ON THE FLOOR MULITPLE TIMES SINCE HE WAS DISCHARGED FROM THIS FACILITY. SHE IS AGREEABLE FOR THE PATIENT TO GO TO REHAB [facility] OR NON [facility]. SHE ALSO STATED THAT RETURNING HOME WITH HER IS AN OPTION BUT SHE IS INSITING ON HIM HAVING A COVID SWAB SHE HERSELF IS IMMUNOCOMPROMISED. POLITICAL SCIENTIST REACHED OUT TO THE MS DIRECTOR OF MANUFACTURING OPERATIONS TO START PAPERWORK FOR THIS PATIENT TO GO TO SNF. POLITICAL SCIENTIST REACHED OUT TO MS SNF [facility] BEDS FOR SEVERAL WEEKS. POLITICAL SCIENTIST REACHED OUT TO MS SNF [facility]- BEDS ARE AVAILABLE. POLITICAL SCIENTIST WILL FAX REFERRAL TO [facility] AT [phone] FOR REVIEW. WILL AWAIT TO HEAR FROM [facility]. WILL NEED OT EVAL TO COMPLETE REFERRAL. POLITICAL SCIENTIST SPOKE WITH HEATHER GARNER WHO STATED THIS WILL BE COMPLETED LATER THIS AFTERNOON.
--- NOTE | 2020-01-08 14:02 | NUR ---
DR. CROWE IN TO SEE PATIENT ON CONSULT.
--- NOTE | 2020-01-08 14:43 | NUR ---
MAGDALENA RECEIVED CALL FROM [facility] [phone]. HE PROVIDED AN UPDATED LIST A LOCAL FACILITIES ACCEPTING THE [facility] C[facility]. MAGDALENA FAXED REFERRAL TO [facility] FOR REVIEW. ONCE WE HAVE AN ACCEPTING FACILITY MAGDALENA WILL CONTACT [facility] BACK TO COMPLETE THE PAPERWORK.
--- NOTE | 2020-01-08 16:25 | NUR ---
0ccupational Therapy evaluation completed on 4 with full eval to follow. Recommmend OT per POC and SNF to enable return home alone at prior level of independent functioning. Thank you. Stephen Reyes OTR/l
--- NOTE | 2020-01-08 19:55 | NUR ---
Pt's daughter called and wanted updates. Explained that I had just recd the patient at 1900 shift change. She asked if he had peed yet, i explained no.Asked about discharge... see no orders and pt needs to receive HD, covid test results and then coordinate with [facility] fo [facility] transfer.
--- NOTE | 2020-01-08 21:28 | NUR ---
Pt was recd at 1900 shift change, is aox4 ,[place] and wears glasses. Pt did not eat his dinner tray,I offered him a donut that was left over from hospital provided food. Pt said that he had fallen at home and hit head and has no open wounds,noted scabs on his knee nothing open. Call fitzgerald and bedside table within reach, bed alarm is on. Will continue to monitor.
[2020-01-09] VITALS: BP 112/50
[2020-01-09 06:53] LABS: BASO % 0.7 % (0.0-1.0); EOS # 0.1 10*3/uL (0.0-0.4); LYMPH # 1.4 10*3/uL (1.3-4.4); MEAN CORPUSCULAR HGB 28.3 pg (27.0-31.0); MEAN CORPUSCULAR HGB CONC 31.4 g/dl (33.0-37.0); MEAN PLATELET VOLUME 11.2 fl (9.6-12.3); MONO # 0.6 10*3/uL (0.1-1.0); MONO % 9.9 % (3.0-9.0); NEUT # 3.7 10*3/uL (2.3-7.9); NEUT % 63.9 % (47.0-73.0); PLATELET COUNT AUTOMATED 131 10*3/uL (130-400); RED BLOOD COUNT 3.11 10*6/uL (4.50-5.90); RED CELL DISTRI WIDTH 15.9 % (0-14.5); WHITE BLOOD COUNT 5.8 10*3/uL (4.8-10.8)
[2020-01-09 06:59] LABS: CREATININE 9.92 mg/dL (0.70-1.30); POTASSIUM 3.7 mmol/L (3.5-5.1)
--- NOTE | 2020-01-09 07:35 | NUR ---
[facility] REQUIRES COVID RESULTS TO ADMIT TO THEIR FACILITY. LINE CONSTRUCTION SUPERVISOR WILL NOTIFY [facility] PUMP SERVICER TO COMPLETE [facility] PAPERWORK.
--- NOTE | 2020-01-09 07:56 | NUR ---
OT NOTE Attempted to see pt this A.M. for OT session and upon arrival pt was leaving for dialysis. Will check back at a later time and continue with POC as able. LAVERNE Garcia/Kathryn
--- NOTE | 2020-01-09 08:05 | NUR ---
PT TRANSPORTED BY BED TO DIALYSIS AT THIS TIME.
--- NOTE | 2020-01-09 08:40 | NUR ---
PHYSICAL THERAPY Patient was in Dialysis at thsi time. Will check back later with patient. MECHE BROWNING RESTAURANT LINE COOK
--- NOTE | 2020-01-09 10:25 | NUR ---
WORKERS COMPENSATION CLAIMS ASSISTANT RECEIVED CALL FROM PATIENTS DAUGHTER LINDY. SHE WAS UNABLE TO VERFY PASSWORD. SHE REQUESTED TO HAVE CALL TRANSFERRED TO PATIENTS ROOM THE PATIENT WAS NOT ANSWERING. WORKERS COMPENSATION CLAIMS ASSISTANT TRANSFERRED CALL AND WENT TO ANSWER IN PATIENTS ROOM. PATIENT WAS OUT OF ROOM. WORKERS COMPENSATION CLAIMS ASSISTANT ANSWERED PT PHONE AND EXPLAINED HE WAS OUT OF ROOM. SHE WANTED TO KNOW ABOUT DPOA-HC FOR THE PATIENT. WORKERS COMPENSATION CLAIMS ASSISTANT EXPLAINED THE DPOA-HC TO HER AND EXPLAINED THIS WORKERS COMPENSATION CLAIMS ASSISTANT WILL SPEAK WITH THE PATIENT.
--- NOTE | 2020-01-09 10:52 | NUR ---
MAGDALENA RECEIVED CALL FROM PATIENTS DAUGHTER IN LAW EMMA [phone]. SHE VERIFIED PASSWORD. SHE ASKED ABOUT SNF. INSURANCE INSTRUCTOR EXPLAINED PATIENT HAS BEEN ACCEPTED TO [place]. INSURANCE INSTRUCTOR EXPLAINED WAITING ON COVID RESULTS TO BE PLACED. SHE ASKED ABOUT TRANSPORTATION FOR THE PATIENT TO ATTEND DIALYSIS. INSURANCE INSTRUCTOR EXPLAINED WOULD CONTACT [facility] TO SEE IF THEY WOULD TRANSPORT. INSURANCE INSTRUCTOR ANSWERED ALL OTHER QUESTIONS. INSURANCE INSTRUCTOR SPOKE WITH [facility]. SHE STATED THEY WOULD TRANSPORT THE PATIENT TO DIALYSIS. INSURANCE INSTRUCTOR CONTACTED EMMA BACK AND INFORMED HER. AWAITING COVID RESULTS FOR PATIENT TO GO TO [place].
--- NOTE | 2020-01-09 11:23 | NUR ---
MOTOR COACH DRIVER COMPLETED HENS.
[2020-01-09 12:00] VITALS: BP 107/67
--- NOTE | 2020-01-09 13:00 | NUR ---
OT NOTE Pt was seen this P.M. 1:1 for 15 minute OT session. Upon arrival pt was supine in bed. Pt identified by name and and had no complaints at this time. Pt transferred supine to sit EOB with SBA. Sit to stand completed from bed level with CGA and use of w/w for UE support. Challenged pt's static standing tolerance needed for increased I in self care tasks and functional transfers. Pt was able to tolerate aprox 3 minutes at a time before sitting due to fatigue. Functional mobility was then completed to the bathroom with CGA and use of w/w. There he transferred on/off standard commode with Debbi for assist with commode alignment and low surface transfer. Functional mobility was then completed back to the EOB. Challenged pt's dynamic standing balance while weight shifting, crossing midline, and reaching over all planes. Pt was able to maintain F- standing balance. He then transferred sit to supine with SBA. There he was left with the call fitzgerald in hand, tray table in place, and bed alarm activated. Continue with rec D/C plan to SNF. LAVERNE Garcia/Kathryn
--- NOTE | 2020-01-09 13:16 | NUR ---
PHYSICAL THERAPY TREATMENT TIME: OUT 12:56 PM 18 MINUTES TOTAL Patient presented to therapy in supine with head of bed elevated and bed alarm on. Patient has no complaints at this time. Patient gives informed consent for treatment. Patient was identified by name and on wristband. Patient performed supine < > sitting on EOB with SBA. Patient sat on EOB SBA. Patient completed STS < > EOB with SBA. Patient ambulated with Wh Walker and Close Supervision 15' x 2 with no LOB and no SOB. STS <> COMMODE with MIN A X 1. STS <> EOB a second time with SBA. Patient ambulated with Wh Walker again with Close Supervision 40' x 1 with no LOB and no SOB. Patient did have some LE weakness and he was verbal cued to lock knees into extesnion with wt bearing in order to prevent knee buckle. Patient completed sitting EOB > SUPINE with SBA. Patient was able to scoot himself up into bed with SBA. Patient was left in supine in bed with head of bed elevated and bed alarm on. Patient's call light left within reach. Patient was 1:1 with this DEPUTY CHIEF SHERIFF for 18 minutes total. MECHE BROWNING DEPUTY CHIEF SHERIFF
[2020-01-09 16:00] VITALS: BP 130/50
[2020-01-09 20:00] VITALS: BP 116/49
[2020-01-10] VITALS: BP 121/51
--- NOTE | 2020-01-10 02:31 | NUR ---
24 HR chart check completed.
--- NOTE | 2020-01-10 07:21 | NUR ---
ANIMAL HUMANE AGENT SUPERVISOR RETURN CALL TO [facility] AND LEFT MESSAGE ASKING FOR A RETURN CALLBACK.
[2020-01-10 07:22] LABS: CREATININE 7.49 mg/dL (0.70-1.30); POTASSIUM 3.8 mmol/L (3.5-5.1)
[2020-01-10 08:00] VITALS: BP 115/62
--- NOTE | 2020-01-10 08:10 | NUR ---
OT NOTE Pt was seen this A.M. 1;1 for 20 minute OT session. Upon arrival pt was supine in bed. Pt identified by name and and had no complaints at this time. Pt transferred supine to sit EOB with SBA. While sitting EOB pt donned B socks with supervision. Sit to stand completed from bed level with CGA and use of w/w for UE support. Functional mobility was then completed to the bathroom with CGA and use of w/w with verbal prompts to slow down due to being impulsive increasing risk of falls. Pt presented with fair carry over. Pt transferred on/off standard commode with Debbi due to poor safety with alignment and low surface. Functional mobility completed back to the EOB with CGA, while coming out of the doorway with a tight turn pt had one LOB that required Debbi to correct. Pt was educated on tight turns and safety. Challenged pt's static standing tolerance needed for increased I and enhanced endurance and pt was able to tolerate aprox 3 minutes at a time before sitting due to fatigue. Pt was left sitting upright in the recliner with call light in hand, tray table in place, and body alarm activated for safety. Continue with rec D/C plan to SNF. ARSEN Garcia
--- NOTE | 2020-01-10 08:30 | NUR ---
PT SEEN AND ASSESSED. PT STATES HE IS LEAVING TODAY. RN INFORMED PT AT THIS TIME THERE ARE NO ORDERS.
--- NOTE | 2020-01-10 08:50 | NUR ---
PHYSICAL THERAPY TREATMENT TIME: IN 07:55 AM 20 MINUTES TOTAL Patient presented to therapy in supine with head of bed elevated and bed alarm on. Patient gives informed consent for treatment. Patient was identified by name and on wristband. Patient performed supine to sitting on EOB with MIN A X 1. Patient STS from EOB with SBA. Patient ambulated with Wh Walker and CGA to commode in bathroom with no LOB. Patient STS <> commode with MIN A X 1. Patient performed GAIT with Wh Walker 30' X 1 with one LOB which required MIN A X 1 to correct. Patient performed seated bilateral LE ther ex 2 x 10 reps FOR STRENGTHENNG the LEs. Patient was left in sititng in bedside chair wit hcall light within reach and chair alarm on. Patient was 1:1 with this WILLOWER for 20 minutes total. MECHE BROWNING WILLOWER
--- NOTE | 2020-01-10 09:09 | NUR ---
SLOPE TENDER SEEN POSITIVE COVID RESULT. SLOPE TENDER NOTIFIED RN HOSPITALIST BARB WHO STATED SHE WOULD NOTIFY DR. BERMUDEZ. SLOPE TENDER SPOKE WITH RN FREDA AND NOTIFIED HER.
--- NOTE | 2020-01-10 09:12 | NUR ---
[facility]
--- NOTE | 2020-01-10 09:20 | NUR ---
RN NOTIFIED THAT COVID CAME BACK POSITIVE. RN CALLED HOSPITALIST AND INFORMED THEM OF POSITIVE TEST RESULTS. RN ALSO INFORMED THEM THAT PT IS REFUSING TO HAVE IV PLACED HE STATES HE DOESN OT REQUIRE IT FOR ANY MEDICATIONS. DR AWARE AND STATES IT IS OK.
--- NOTE | 2020-01-10 10:31 | NUR ---
DIRECTOR PHARMACOVIGILANCE FAXED REFERRAL TO [facility] FOR REVIEW.
--- NOTE | 2020-01-10 11:02 | NUR ---
SERVER SOFTWARE ENGINEER FAXED REFERRAL TO [facility] FOR REVIEW. IF ABLE TO ACCEPT A BED WILL NOT BE AVAILABLE UNTIL NEXT WEEK. THEY ARE ALSO ABLE TO DO BEDSIDE DIALYSIS. [facility] ALSO HAS THE REFERRAL AND IS REVIEWING IT.
[2020-01-10 16:00] VITALS: BP 100/53
[2020-01-10 20:00] VITALS: BP 140/67
[2020-01-11] VITALS: BP 106/41
--- NOTE | 2020-01-11 01:31 | NUR ---
24 HR chart check completed.
--- NOTE | 2020-01-11 02:00 | NUR ---
RESTING IN BED WATCHING TV. NO ACUTE DISTRESS NOTED.
--- NOTE | 2020-01-11 04:11 | NUR ---
ALERT SET OFF BED ALARM, UP TO BATHROOM HOLDING ON TO FURNITURE, ENTERED ROOM PATIENT IN BATHROOM ON TOILET, HAD SOILED BED AND PERICARE GIVEN FOR STOOL. BRIEF CHANGED PATIENT CLEANED GOWN CHANGED, BEDLINENS CHANGED. PATIENT ASSISTED TO RECLINER CHAIR WITH WHEELS LOCKED AND BODY ALARM ON.
--- NOTE | 2020-01-11 04:20 | NUR ---
NON PRODUCTIVE COUGH NOTED. NO ACUTE DISTRESS NOTED.
[2020-01-11 07:01] LABS: BASO % 0.5 % (0.0-1.0); EOS # 0.1 10*3/uL (0.0-0.4); EOS % 1.5 % (1.0-4.0); HEMATOCRIT 29.7 % (42.0-52.0); LYMPH # 1.4 10*3/uL (1.3-4.4); LYMPH % 20.9 % (27.0-41.0); MEAN CELL VOLUME 90.8 fl (80.0-94.0); MEAN CORPUSCULAR HGB 29.1 pg (27.0-31.0); MEAN PLATELET VOLUME 11.3 fl (9.6-12.3); MONO # 0.6 10*3/uL (0.1-1.0); MONO % 9.1 % (3.0-9.0); NEUT # 4.4 10*3/uL (2.3-7.9); NEUT % 67.4 % (47.0-73.0); PLATELET COUNT AUTOMATED 144 10*3/uL (130-400); RED BLOOD COUNT 3.27 10*6/uL (4.50-5.90); RED CELL DISTRI WIDTH 15.9 % (0-14.5); WHITE BLOOD COUNT 6.6 10*3/uL (4.8-10.8)
[2020-01-11 07:32] LABS: CREATININE 9.64 mg/dL (0.70-1.30)
[2020-01-11 08:00] VITALS: BP 131/47
[2020-01-11 12:00] VITALS: BP 119/56
[2020-01-11 16:00] VITALS: BP 134/50
[2020-01-11 20:00] VITALS: BP 127/59
[2020-01-12] VITALS: BP 103/55
[2020-01-12 07:07] LABS: CREATININE 11.7 mg/dL (0.70-1.30); POTASSIUM 4.2 mmol/L (3.5-5.1)
[2020-01-12 08:00] VITALS: BP 100/60
[2020-01-12 12:00] VITALS: BP 106/62
--- NOTE | 2020-01-12 12:00 | NUR ---
PHYSICAL THERAPY TREATMENT TIME: IN 12:00 PM Patient presented to therapy in sidelying in bed with head of bed flat and bed alarm off. Patient reports no pain or other complaints. Patient has no IVs infusing. Patient does not have a catheter. Patient uses a Wh Walker. Patient gives informed consent for treatment. Patient was identified by name and on wristband. Patient performed supine <> sitting on EOB with SBA. Patient sat on EOB with Supervision. Patient completed STS <> EOB SBA. Patient ambulated with Wh Walker and CGA to restroom 15' x 1 and STS <> COMMODE with SBA - CGA. Patient ambulated another 30' x 1 with Wh Walker and Close Supervision - CGA. Patient performed seated bilateral LE ther ex including LAQs, hip abduction, marches and heel/toe raises in order to improve patient's functional mobility. Patient performed sitting on EOB > supine with SBA. Patient was left in supine in bed with head of bed elevated and bed alarm on. Patient's call light within reach. Patient was 1:1 with this CREW LEADER for 20 minutes total. MECHE BROWNING CREW LEADER
--- NOTE | 2020-01-12 14:21 | NUR ---
OFF FLOOR FOR DIALYSIS.
--- NOTE | 2020-01-12 14:25 | NUR ---
Patient was seen this afternoon 1:1 for a 15 minute OT session. Upond arrival pt was supine in bed. Pt identified by name and and had no complains other than fatigue at this time. Pt transferred supine to sit EOB with CGA. Pt then completed sit to stand from bed level with CGA and use of ww for UE support. Functional mobility was completed to bathroom with CGA with verbal cues for ww safety. Patient transferred on and off standard commode with verbal cues for hand placement. Functional mobility was completed back to EOB with min A coming out of doorway with limited space. Pt educated on ww safety. Pt transferred from sit to supine with MOD A to scoot up towards head of bed. Pt was left supine in bed with all needs in reach. Plan to reccomend SNF and continue OT plan of care. Celine Bautista OTR/Kathryn
--- NOTE | 2020-01-12 14:54 | NUR ---
PHYSICAL THERAPY CO-SIGN I approve of the Physical Therapy notes written above. Lavonne Chacon PT
--- NOTE | 2020-01-12 14:59 | NUR ---
OCCUPATIONAL THERAPY CO-SIGN I approve of the Occupational Therapy notes written above. Celine Bautista OTR/L
--- NOTE | 2020-01-12 17:49 | NUR ---
BACK TO ROOM FOLLOWING DIALYSIS TREATMENT. 1.5 KILO OFF PER DIALYSIS NURSE. VSS. ISOLATION PRECAUTIONS MAINTAINED. CALL LIGHT IN REACH.
[2020-01-12 18:00] VITALS: BP 119/69
[2020-01-12 20:00] VITALS: BP 112/53
[2020-01-13] VITALS: BP 103/43
[2020-01-13 07:16] LABS: BASO # 0.1 10*3/uL (0.0-0.1); BASO % 0.6 % (0.0-1.0); EOS # 0.1 10*3/uL (0.0-0.4); EOS % 1.2 % (1.0-4.0); HEMATOCRIT 29.5 % (42.0-52.0); LYMPH # 1.6 10*3/uL (1.3-4.4); MEAN CELL VOLUME 90.5 fl (80.0-94.0); MEAN CORPUSCULAR HGB 28.8 pg (27.0-31.0); MEAN CORPUSCULAR HGB CONC 31.9 g/dl (33.0-37.0); MEAN PLATELET VOLUME 11.5 fl (9.6-12.3); MONO # 0.6 10*3/uL (0.1-1.0); MONO % 8.3 % (3.0-9.0); NEUT # 5.4 10*3/uL (2.3-7.9); NEUT % 69.4 % (47.0-73.0); PLATELET COUNT AUTOMATED 170 10*3/uL (130-400); RED BLOOD COUNT 3.26 10*6/uL (4.50-5.90); RED CELL DISTRI WIDTH 15.7 % (0-14.5); WHITE BLOOD COUNT 7.8 10*3/uL (4.8-10.8)
[2020-01-13 07:36] LABS: POTASSIUM 4.2 mmol/L (3.5-5.1)
[2020-01-13 07:40] LABS: CREATININE 8.12 mg/dL (0.70-1.30)
--- NOTE | 2020-01-13 07:45 | NUR ---
AWAKE, CHANGING POSITIONS IN BED. NO COMPLAINTS VOICED AT THIS TIME. NO DISTRESS NOTED. ROOM AIR. CALL LIGHT IN REACH.
[2020-01-13 08:00] VITALS: BP 90/75
--- NOTE | 2020-01-13 11:05 | NUR ---
PT CALLED OUT, STATES HE IS ON THE FLOOR. 2RNS IMMEDIATELY AT THE BEDSIDE. ISOLATION PRECAUTIONS MAINTAINED. SKIN ASSESS WITH NO INJURIES/WOUNDS NOTED. PT DENIES ANY PAIN AT THIS TIME. STATES HE ONLY SLID OUT OF THE CHAIR. NEVER HIT HIS HEAD OR INJURIED ANYTHING. BODY ALARM FOUND TO BE ATTACHED BUT NOT SIGNALING. ASSISTED PT BACK TO BED WITH EASE. PT STATES HE IS MORE COMFORTABLE. BED ALARM ON. CALL LIGHT WITHIN REACH.
--- NOTE | 2020-01-13 11:13 | NUR ---
ON FLOOR FOR ROUNDS, NOTITIED OF PATIENT FALL. NO NEW ORDERS REC'D AT THIS TIME.
--- NOTE | 2020-01-13 11:15 | NUR ---
ANATOLIY GARCIA BEAN PICKER MACHINE OPERATOR NOTIFIED OF FALL.
--- NOTE | 2020-01-13 11:22 | NUR ---
ATTEMPTED TO CALL FAMILY AT THIS TIME TO INFORM OF FALL. NO ANSWER.
--- NOTE | 2020-01-13 11:36 | NUR ---
REINA SANCHEZ CALLED BACK. INFORMED OF FALL TODAY. NO CONCERNS VOICED. UPDATED ON STATUS.
[2020-01-13 12:00] VITALS: BP 103/46
--- NOTE | 2020-01-13 12:06 | NUR ---
VS REMAIN STABLE. CALL LIGHT IN REACH. AAOx3 AT THIS TIME. CONTINUES TO DENY PAIN.
--- NOTE | 2020-01-13 14:06 | NUR ---
IN BED, BED ALARM IN TACT. CHANGING POSITIONS WITH EASE ON OWN. VSS. DENIES ANY NEEDS OR PAIN AT THIS TIME. AAOx3
[2020-01-13 16:00] VITALS: BP 112/95
[2020-01-13 20:00] VITALS: BP 94/50
--- NOTE | 2020-01-13 21:50 | NUR ---
PATIENT RESTING ON LT SIDE, NO NEEDS MADE, CALL LIGHT IN REACH, BED ALARM MAINTAINED FOR SAFETY. WILL CONT TO MONITOR.
[2020-01-14] VITALS: BP 94/50; BP 98/50
--- NOTE | 2020-01-14 02:00 | NUR ---
Patient resting quietly with no c/o discomfort. Respirations easy and regular. Vital signs stable. No overt distress. DWAINE HUANG
[2020-01-14 06:49] LABS: BASO % 0.6 % (0.0-1.0); EOS # 0.1 10*3/uL (0.0-0.4); EOS % 1.5 % (1.0-4.0); HEMATOCRIT 29.7 % (42.0-52.0); LYMPH # 1.8 10*3/uL (1.3-4.4); LYMPH % 24.8 % (27.0-41.0); MEAN CELL VOLUME 91.7 fl (80.0-94.0); MEAN CORPUSCULAR HGB 28.7 pg (27.0-31.0); MEAN CORPUSCULAR HGB CONC 31.3 g/dl (33.0-37.0); MEAN PLATELET VOLUME 11.7 fl (9.6-12.3); MONO # 0.8 10*3/uL (0.1-1.0); MONO % 10.5 % (3.0-9.0); NEUT # 4.4 10*3/uL (2.3-7.9); PLATELET COUNT AUTOMATED 181 10*3/uL (130-400); RED BLOOD COUNT 3.24 10*6/uL (4.50-5.90); RED CELL DISTRI WIDTH 15.7 % (0-14.5); WHITE BLOOD COUNT 7.1 10*3/uL (4.8-10.8)
[2020-01-14 07:37] LABS: CREATININE 10.7 mg/dL (0.70-1.30); POTASSIUM 4.5 mmol/L (3.5-5.1)
[2020-01-14 08:00] VITALS: BP 119/62
[2020-01-14 12:00] VITALS: BP 104/63
--- NOTE | 2020-01-14 14:10 | NUR ---
LAST BM ON 01/07. DULCOLAX GIVEN WITH MORNING MEDS THIS AM. WILL MONITOR FOR EFFECTIVENESS. BSX4, NORMOACTIVE. NONTENDER, SLIGHTLY DISTENDED. CALL LIGHT IN REACH. BED ALARM MAINTAINED.
[2020-01-14 16:00] VITALS: BP 85/60
[2020-01-14 20:00] VITALS: BP 122/46
[2020-01-14 22:21] LABS: BILIRUBIN Negative (Negative); BLOOD Negative (Negative); CLARITY Clear (Clear); COLOR Yellow (Yellow); GLUCOSE Trace (Negative); KETONE Negative (Negative); LEUKO ESTERASE Negative (Negative); NITRITE Negative (Negative); SPECIFIC GRAVITY 1.015 (1.001-1.030); UROBILINOGEN 0.2 E.U./dl (0.0-1.0)
[2020-01-14 22:58] LABS: PH 8.5 (4.5-8.0)
[2020-01-14 22:59] LABS: BACTERIA 1+
[2020-01-15] VITALS: BP 140/46
--- NOTE | 2020-01-15 07:20 | NUR ---
REPORT RECEIVED. PT ASLEEP. CALL LIGHT IN REACH
--- NOTE | 2020-01-15 07:27 | NUR ---
INCIDENT RESPONSE ENGINEER FAXED REFERRAL TO [facility].
[2020-01-15 07:31] LABS: BASO # 0.1 10*3/uL (0.0-0.1); BASO % 0.7 % (0.0-1.0); EOS # 0.1 10*3/uL (0.0-0.4); EOS % 1.7 % (1.0-4.0); HEMATOCRIT 28.2 % (42.0-52.0); LYMPH # 1.7 10*3/uL (1.3-4.4); MEAN CELL VOLUME 90.1 fl (80.0-94.0); MEAN CORPUSCULAR HGB 28.4 pg (27.0-31.0); MEAN CORPUSCULAR HGB CONC 31.6 g/dl (33.0-37.0); MEAN PLATELET VOLUME 11.5 fl (9.6-12.3); MONO # 0.6 10*3/uL (0.1-1.0); MONO % 8.4 % (3.0-9.0); NEUT # 4.5 10*3/uL (2.3-7.9); NEUT % 64.8 % (47.0-73.0); PLATELET COUNT AUTOMATED 196 10*3/uL (130-400); RED BLOOD COUNT 3.13 10*6/uL (4.50-5.90); RED CELL DISTRI WIDTH 15.9 % (0-14.5); WHITE BLOOD COUNT 6.9 10*3/uL (4.8-10.8)
[2020-01-15 07:47] LABS: ALBUMIN 2.6 gm/dl (3.1-4.5); CREATININE 12.2 mg/dL (0.70-1.30); POTASSIUM 4.5 mmol/L (3.5-5.1); TOTAL PROTEIN 7.2 gm/dL (6.4-8.2)
[2020-01-15 08:00] VITALS: BP 131/41
--- NOTE | 2020-01-15 09:00 | NUR ---
IN TO SEE PT. PT VOICES NO COMPLAINTS, CALL LIGHT IN REACH
--- NOTE | 2020-01-15 09:43 | NUR ---
OT NOTE Pt was seen this A.M. 1:1 for 25 minute OT session. Upon arrival pt was supine in bed. Pt identified by name and and had no complaints at this time. Pt transferred supine to sit EOB with Debbi for assist with upper body. While sitting EOB pt donned B socks with SBA while using compensatory technique of bringing his legs up to knee level. Sit to stand completed from bed level with CGA and use of w/w for UE support. Challenged pt's static standing tolerance needed for increased I in self care tasks and functional transfers. Pt was able to tolerate aprox 3 minutes at a time before sitting due to fatigue. Functional mobility completed to the bathroom with CGA and use of w/w. There he transferred on to the standard commode with Debbi and off with Debbi due to poor safety awareness and low surface. He then stood sink side while washing his hands with CGA for safety. While exiting to the bathroom pt had one LOB during tight turn that required Debbi to correct. Pt was educated on safety with the walker and turning technique. Functional mobility completed back to the recliner with CGA and use of w/w. After a seated rest break challenged pt's dynamic standing balance while weight shifting, crossing midline, and reaching over all planes. Pt was able to maintain F- standing balance throughout requiring UE support. Pt was left sitting upright in the recliner with call light in hand, tray table in place, and body alarm activated for safety. Continue with rec D/C plan to SNF. Throughout entire session airborne precautions were maintained. LAVERNE Gacria/Kathryn
--- NOTE | 2020-01-15 09:55 | NUR ---
PHYSICAL THERAPY Patient was supine in bed with head of bed flat and bed alarm on upon this MACADAM RAKER arriving in the patient's room. Patient gives informed consent for treatment. Patient was identified by name and on wristband. Patient has no complaints. Patient performed supine <> sitting on EOB with MIN A X 1. Patient sat on EOB with SBA. Patient STS <> EOB with SBA - CGA. Patient ambulated with Wh Walker amd CGA for 15' x 1 and patient sat in low chair with SBA. Patient STS <> low chair with MIN A X 1 and verbal cues for proper hand placement. Patient ambulated another 25' x 1 with Wh Walker and CGA with verbal cues for locking knees into extension to prevent knee buckling and upright posture. Patient performd 30 sec STS test with 4 sit to stands performed in 30 seconds time with SBA and patient using UEs to push off of bed to stand. Patient then completd seated bilateral LE ther ex 2 x 10 reps each for strengthening the LEs in order to improve stregth and functional mobility. Patient was left in bedside chair with call light within reach and chair alarm tested and attached to patient. Patient treatment was witnessed by LAVERNE MONTESINOS. Patient was 1:1 with this MACADAM RAKER for 22 minutes total. THO BROWNING MACADAM RAKER
--- NOTE | 2020-01-15 11:43 | NUR ---
FORK LIFT TECHNICIAN CONTACTED DAUGHTER LINDY, LISTED PERSON TO NOTIFY ABOUT SNF PLACEMENT. LINDY STATED THAT SHE IS FINE ABOUT THE REFERRALS BEING SENT OUT. SHE EXPRESSED CONCERNS OVER NOT BEING ABLE TO TALK TO THE RNS ABOUT HER FATHER. SHE STATED THAT HER BROTHERS GIRLFRIEND EMMA SET THE PASSWORD AND REFUSES TO GIVE IT TO HER, EVEN THOUGH SHE HAS ASKED MULTIPLE TIMES. SHE STATED THAT HER BROTHER DOES NOT EVEN KNOW THE PASSWORD. SHE ALSO STATED THAT THIS PATIENT LIVES ALONE AND MONTY DOES ASSIST WITH CARING FOR HIM. LINDY EXPRESSED CONCERN FOR FINANCIAL EXPLOITATION BEING DONE BY EMMA TO THIS PATIENT. FORK LIFT TECHNICIAN EXPLAINED THAT DUE TO BEING THIRD [place], SHE WOULD NEED TO MAKE A REFERRAL TO [facility]. FORK LIFT TECHNICIAN PROVIDED HER THE NUMBER. FORK LIFT TECHNICIAN EXPLAINED THAT THIS FORK LIFT TECHNICIAN WOULD SPEAK WITH THIS PATIENTS RN TO SEE IF SHE WOULD BE ABLE TO ASK THE PATIENT FOR VERBAL CONSENT TO SPEAK TO HIS DAUGHTER. FORK LIFT TECHNICIAN DID SPEAK WITH RN JAYLON, WHO STATED SHE WOULD ASK HIM NEXT TIME SHE GOES IN TO SEE HIM.
[2020-01-15 12:00] VITALS: BP 136/58
--- NOTE | 2020-01-15 13:24 | NUR ---
PATIENT HAS BEEN ACCEPTED TO [facility] PER NHUNG VALLADARES.
--- NOTE | 2020-01-15 13:47 | NUR ---
AUTO MECHANIC APPRENTICE REACHED OUT TO [facility] [phone] [id number] AND LEFT VOICEMAIL EXPLAINING ACCEPTING FACILITY. AUTO MECHANIC APPRENTICE REFAXED PT/OT EVALS TO HIM FOR THE [place] TO START THEIR PROCESS FOR COVERAGE OF SNF. PATIENT WILL BE GOING TO [facility] UNDER HIS MEDICARE FIRST THEN SWITCHING TO [facility].
--- NOTE | 2020-01-15 14:20 | NUR ---
PT OFF FLOOR FOR DIALYSIS
--- NOTE | 2020-01-15 14:49 | NUR ---
TICKET SPECULATOR MADE AWARE OF DISCHARGE. CASE MANAGEMENT WAS TOLD A 6:630/7PM TRANSPORT. TICKET SPECULATOR CONTACTED [facility] AND ARRANGED FOR TRANSPORT FOR 7PM. DR. DURAN THEN CALLED AND ASKED THE LATEST TIME [facility] WOULD ACCEPT THE PATIENT. TICKET SPECULATOR SPOKE WITH [facility] SHE STATED NO LATER THAN 6PM. TICKET SPECULATOR SPOKE WITH JOSÉ MIGUEL HURLEY AND SPOKE WITH HER ABOUT THIS ISSUE. TICKET SPECULATOR RECEIVED ANOTHER CALL BACK FROM [facility] AND WAS INFORMED TO HAVE AMBULANCE HERE AT 5:45PM. TICKET SPECULATOR CONTACTED [facility] BACK AND ARRANGED FOR A 5:45PM TRANSPORT TO [facility]. TICKET SPECULATOR INFORMED [facility] WE[facility]. TICKET SPECULATOR REACHED OUT TO PATIENTS DAUGHTER LINDY, PERSON TO NOTIFY, SHE IS AWARE. TICKET SPECULATOR TO FAX DISCHARGE ORDERS TO [facility].
--- NOTE | 2020-01-15 17:27 | NUR ---
PT RETURNING TO FLOOR AT THIS TIME.
--- NOTE | 2020-01-15 18:38 | NUR ---
REPORT CALLED TO DESI WEBER
--- NOTE | 2020-01-15 19:17 | NUR ---
Discharge instructions reviewed with patient/family. Patient receptive and verbalizes understanding. Follow-up care arranged. Written instructions given to patient/family. MEI APODACA
--- NOTE | 2020-01-16 08:03 | NUR ---
OCCUPATIONAL THERAPY CO-SIGN I approve of the Occupational Therapy notes written above. KAREN RIVERA, OTR/L
--- NOTE | 2020-01-16 08:05 | NUR ---
PHYSICAL THERAPY CO-SIGN I approve of the Physical Therapy notes written above. Lavonne Chacon PT
== END 2020-01-15 19:17 | disposition other institution (70) | DRG 177 ==
LOC: ED 23:07 → EDHOLD 01-08 04:41 → 4E 01-08 04:41
PROVIDERS: Emergency Medicine; Hospitalist; Internal Medicine; Social Worker Clinical; Student in an Organized Health Care Education/Training Program; ADMIT Student in an Organized Health Care Education/Training Program; ATTEND Student in an Organized Health Care Education/Training Program
PROC: 5A1D70Z Performance of Urinary Filtration, Intermittent, Less than 6 Hours Per Day (ICD-10-PCS; principal; 2020-01-08)
PROC: 5A1D70Z Performance of Urinary Filtration, Intermittent, Less than 6 Hours Per Day (ICD-10-PCS; 2020-01-09)
DX: U07.1 COVID-19 (principal); N18.6 End stage renal disease; E44.0 Moderate protein-calorie malnutrition; I12.0 Hypertensive chronic kidney disease with stage 5 chronic kidney disease or end stage renal disease; E87.6 Hypokalemia; R73.9 Hyperglycemia, unspecified; R29.6 Repeated falls; D72.810 Lymphocytopenia; E83.41 Hypermagnesemia; E78.5 Hyperlipidemia, unspecified; I25.10 Atherosclerotic heart disease of native coronary artery without angina pectoris; I73.9 Peripheral vascular disease, unspecified; M54.5 Low back pain; G89.29 Other chronic pain; H91.93 Unspecified hearing loss, bilateral; B35.1 Tinea unguium; F17.210 Nicotine dependence, cigarettes, uncomplicated; D63.8 Anemia in other chronic diseases classified elsewhere; I95.9 Hypotension, unspecified; Z99.2 Dependence on renal dialysis; Z88.0 Allergy status to penicillin; Z82.49 Family history of ischemic heart disease and other diseases of the circulatory system; Z86.73 Personal history of transient ischemic attack (TIA), and cerebral infarction without residual deficits; Z95.9 Presence of cardiac and vascular implant and graft, unspecified; Z79.899 Other long term (current) drug therapy; Z68.22 Body mass index [BMI] 22.0-22.9, adult

== ENCOUNTER 2020-01-19 05:34 | Emergency (ER) | payer OTHER ==
[~2020-01-19] VITALS: Ht 187.9 cm; Wt 75.7 kg
[~2020-01-19 05:34] MED LIST changes: +NORVASC5 MG PO
[2020-01-19 06:25] LABS: BASO # 0.1 10*3/uL (0.0-0.1); BASO % 1.2 % (0.0-1.0); EOS # 0.1 10*3/uL (0.0-0.4); EOS % 1.2 % (1.0-4.0); HEMATOCRIT 26.7 % (42.0-52.0); LYMPH # 1.4 10*3/uL (1.3-4.4); LYMPH % 18.1 % (27.0-41.0); MEAN CELL VOLUME 89.9 fl (80.0-94.0); MEAN CORPUSCULAR HGB 28.6 pg (27.0-31.0); MEAN CORPUSCULAR HGB CONC 31.8 g/dl (33.0-37.0); MEAN PLATELET VOLUME 11.1 fl (9.6-12.3); MONO # 0.7 10*3/uL (0.1-1.0); MONO % 9.1 % (3.0-9.0); NEUT # 5.5 10*3/uL (2.3-7.9); NEUT % 69.9 % (47.0-73.0); PLATELET COUNT AUTOMATED 215 10*3/uL (130-400); RED BLOOD COUNT 2.97 10*6/uL (4.50-5.90); RED CELL DISTRI WIDTH 15.8 % (0-14.5); WHITE BLOOD COUNT 7.8 10*3/uL (4.8-10.8)
[2020-01-19 06:34] LABS: ALBUMIN 2.8 gm/dl (3.1-4.5); CREATININE 11.6 mg/dL (0.70-1.30); POTASSIUM 4.5 mmol/L (3.5-5.1); TOTAL PROTEIN 7.8 gm/dL (6.4-8.2)
== END 2020-01-19 07:45 ==
LOC: ED 05:34
PROVIDERS: Internal Medicine
DX: G45.9 Transient cerebral ischemic attack, unspecified (principal); U07.1 COVID-19; I12.0 Hypertensive chronic kidney disease with stage 5 chronic kidney disease or end stage renal disease; N18.6 End stage renal disease; D64.9 Anemia, unspecified; Z88.0 Allergy status to penicillin; Z79.899 Other long term (current) drug therapy

== ENCOUNTER → 2020-04-04 | Outpatient (CLI) | payer OTHER | END | disposition home or self-care (01) | LOC: US 13:00 | PROVIDERS: ATTEND Nurse Practitioner Family | DX: H53.8 Other visual disturbances (principal) ==